=== PATIENT | female | born 1935 | race Caucasian/White ===

== ENCOUNTER → 2016-11-12 | Outpatient (CLI) | payer MEDICARE, OTHER ==
[~2016-11-12] MED LIST: CALCIUM600 M2 PO; FISH OIL1000 MG PO; GLUCOSAMINE & C1 CA1 PO; LIPITOR20 MG PO; MULTI VITAMINS1 TAB PO; SYNTHROID0.1 MG/TAB PO; TYLENOL PM EXTR1 TA1 PO; VITAMIN C500 MG PO; VITAMIN D3400 IU PO; VITAMIN E100 I3 PO
== END ==
LOC: MC.RAD 09:56
DX: Z12.31 Encounter for screening mammogram for malignant neoplasm of breast (principal); D24.2 Benign neoplasm of left breast; D24.1 Benign neoplasm of right breast; Z85.3 Personal history of malignant neoplasm of breast

== ENCOUNTER → 2017-11-15 | Outpatient (CLI) | payer MEDICARE, OTHER | LOC: MC.RAD 09:34 | DX: Z12.31 Encounter for screening mammogram for malignant neoplasm of breast (principal) ==

== ENCOUNTER → 2018-11-17 | Outpatient (CLI) | payer MEDICARE, OTHER | LOC: MC.RAD 08:52 | DX: Z12.31 Encounter for screening mammogram for malignant neoplasm of breast (principal); C50.912 Malignant neoplasm of unspecified site of left female breast ==

== ENCOUNTER 2019-10-30 08:18 | Day surgery (SDC) | payer MEDICARE, OTHER ==
[~2019-10-30] VITALS: Ht 162.6 cm; Wt 69.1 kg
[2019-10-30] MEDS ORDERED: KRILL OIL 1,001 EAC1 PO (08:43)
[2019-10-30] MEDS ORDERED: CALCIUM CARBON650 M2 PO (08:43)
[2019-10-30] MEDS ORDERED: MASON NATURAL500 MG PO (08:44)
[2019-10-30] MEDS ORDERED: MULTI VITAMINS1 TAB PO (08:44)
[2019-10-30] MEDS ORDERED: VITAMIN C500 MG PO (08:44)
[2019-10-30] MEDS ORDERED: VITAMIN D250 MCG PO (08:44)
[2019-10-30] MEDS ORDERED: THE MEDICINE S200 M2 PO (08:45)
[2019-10-30] MEDS ORDERED: TURMERIC500 MG PO (08:45)
[2019-10-30] MEDS ORDERED: LIPITOR20 MG PO (08:45)
[2019-10-30] MEDS ORDERED: THYROXIN PO (08:46)
[2019-10-30] MEDS ORDERED: ALEVE 220MG220 MG PO (08:47)
[2019-10-30] MEDS ORDERED: GLUCOSAMIN 500 PO (08:47)
[2019-10-30 08:50] VITALS: BP 148/64; PULSE 74; TEMP 97.6
[2019-10-30 10:45] VITALS: BP 113/42; PULSE 74
--- NOTE | 2019-10-30 12:18 | NUR ---
PT TOLERATED FOOD AND FLUIDS, DENIES PAIN OR NAUSEA AND OR VOMITING. DAUGHTER PRESENT WITH HER. DISCHARGE INSTRUCTIONS GIVEN, PT VOICES UNDERSTANDING AND SIGNED DC INSTRUCTIONS. PT DC'D TO FAMILY VEHICLE, DAUGHTER DRIVING
== END 2019-10-30 11:25 | disposition home or self-care (01) ==
LOC: SDCO 08:18
DX: Z12.11 Encounter for screening for malignant neoplasm of colon (principal); K57.30 Diverticulosis of large intestine without perforation or abscess without bleeding; Z88.2 Allergy status to sulfonamides
CPT/HCPCS: J2250; J2405; J3010; J7030

== ENCOUNTER → 2019-11-21 | Outpatient (CLI) | payer MEDICARE, OTHER ==
[~2019-11-21] MED LIST changes: +ALEVE 220MG220 MG PO; +CALCIUM CARBON650 M2 PO; +GLUCOSAMIN 500 PO; +KRILL OIL 1,001 EAC1 PO; +MASON NATURAL500 MG PO; +THE MEDICINE S200 M2 PO; +THYROXIN PO; +TURMERIC500 MG PO; +VITAMIN D250 MCG PO
== END ==
LOC: MC.RAD 14:20
DX: Z12.31 Encounter for screening mammogram for malignant neoplasm of breast (principal); C50.912 Malignant neoplasm of unspecified site of left female breast

== ENCOUNTER 2020-11-25 20:50 | Inpatient (IN) | payer MEDICARE, OTHER ==
[~2020-11-25] VITALS: Ht 162.6 cm; Wt 72.7 kg
[2020-11-25 21:35] LABS: COLLECTION METHOD CLEAN CATCH
[2020-11-25 21:41] LABS: BASO % 0.2 % (0.0-2.0); EOS # 0.1 (0.0-0.7); EOS % 0.6 % (0-4.0); GRAN # 10.7 (1.4-6.5); HEMOGLOBIN 11.2 g/dl (12.5-16.0); LYMPH # 0.8 (1.2-3.4); MEAN CELL VOLUME 95 fl (80.0-100.0); MEAN CORPUSCULAR HEMOGLOBIN 31 pg (27.0-31.0); MEAN CORPUSCULAR HGB CONC 33 g/dl (33.0-37.0); MEAN PLATELET VOLUME 9.2 fl (7.4-10.4); MONO # 1.4 (0.1-0.6); MONO % 10.8 % (1.7-9.3); PLATELET COUNT 206 K/mm3 (130-400); RED BLOOD COUNT 3.57 M/mm3 (4.10-5.30); REDCELL DISTRIBUTION WIDTH-CV 13.3 % (11.5-14.5)
[2020-11-25 21:46] LABS: HEMATOCRIT 33.9 % (37.0-47.0)
[2020-11-25 21:48] LABS: AMORPHOUS CRYSTAL Present /uL; PH 5 (5-8); SQUAMOUS EPITHELIAL None Seen /hpf; URINE APPEARANCE Cloudy; URINE BACTERIA Moderate /hpf; URINE BILIRUBIN Negative (NEGATIVE); URINE BLOOD Negative (NEGATIVE); URINE COLOR Yellow; URINE GLUCOSE Negative (NEGATIVE); URINE KETONE Trace (NEGATIVE); URINE LEUKOCYTE ESTERASE 3+ (NEGATIVE); URINE NITRATE Positive (NEGATIVE); URINE PROTEIN(semi-quant) Negative (NEGATIVE); URINE UROBILINOGEN Negative (NEGATIVE)
[2020-11-25 21:57] LABS: ALBUMIN 3.3 gm/dL (3.5-5.0); BILIRUBIN,TOTAL 0.7 mg/dL (0.0-1.0); CALCIUM 9.1 mg/dL (8.4-10.2); CREATININE, serum 0.93 (0.52-1.25); POTASSIUM 4.8 mmol/L (3.4-5.0); TOTAL PROTEIN 5.8 gm/dL (6.4-8.2)
[2020-11-25] MEDS ORDERED: ASPIRIN 32325 MG/TAB PO (22:43)
[2020-11-25 22:45] LABS: ARTERIAL BLD GAS O2 SATURATION 98.7 % (92-100); ARTERIAL BLOOD GAS BASE EXCESS 0.4 (-2-2); ARTERIAL BLOOD GAS HCO3 24.8 meq/L (22-26); ARTERIAL BLOOD GAS PCO2 39.2 mmHg (35-45); ARTERIAL BLOOD GAS pH 7.42 (7.35-7.45)
[2020-11-25] MEDS ORDERED: COZAAR100 MG PO (22:45)
[2020-11-25 22:47] LABS: ARTERIAL BLOOD GAS PO2 157.7 mmHg (80-100)
[2020-11-25] MEDS ORDERED: SYNTHROID0.1 MG/TAB PO (22:47)
[2020-11-25] MEDS ORDERED: ZOFRAN 4MG T4 MG/TAB PO (22:48)
[2020-11-25] MEDS ORDERED: MOBIC 7.5MG7.5 MG PO (22:48)
[2020-11-26 01:12] VITALS: BP 116/42; PULSE 83; TEMP 98.5
--- NOTE | 2020-11-26 01:41 | NUR ---
arrived to unit, oriented to room, call montalvo, hospital policies, updated on plan of care, made comfortable, skin assessment completed, dressing to L hip intact with bruising (purple) around site, denies nausea, O2@2L per NC in use, IV to L hand, fall precautions in place, call montalvo w/i reach.
[2020-11-26 04:20] VITALS: BP 141/52; PULSE 103; TEMP 99.8
[2020-11-26 07:19] LABS: HEMOGLOBIN 10.2 g/dl (12.5-16.0); MEAN CELL VOLUME 95 fl (80.0-100.0); MEAN CORPUSCULAR HEMOGLOBIN 31 pg (27.0-31.0); MEAN CORPUSCULAR HGB CONC 33 g/dl (33.0-37.0); MEAN PLATELET VOLUME 9.4 fl (7.4-10.4); PLATELET COUNT 191 K/mm3 (130-400); RED BLOOD COUNT 3.26 M/mm3 (4.10-5.30); REDCELL DISTRIBUTION WIDTH-CV 13.6 % (11.5-14.5)
[2020-11-26 07:25] LABS: HEMATOCRIT 30.9 % (37.0-47.0)
[2020-11-26 07:39] LABS: BILIRUBIN,TOTAL 0.5 mg/dL (0.0-1.0); CALCIUM 8.6 mg/dL (8.4-10.2); CREATININE, serum 0.85 (0.52-1.25); POTASSIUM 4.5 mmol/L (3.4-5.0); TOTAL PROTEIN 5.4 gm/dL (6.4-8.2)
[2020-11-26 07:51] VITALS: BP 120/48; PULSE 98; TEMP 99.7
[2020-11-26 09:17] LABS: BAND 19 % (0-10); LYMPHOCYTE 5 % (20.0-51.0); NEUTROPHILS 65 % (42.0-75.2)
[2020-11-26 09:18] LABS: PLATELET ESTIMATE NORMAL (NORMAL)
[2020-11-26 11:41] VITALS: BP 112/37; PULSE 93; TEMP 99.4
--- NOTE | 2020-11-26 11:48 | NUR ---
First visit from the planning associate. No needs right now.
--- NOTE | 2020-11-26 15:31 | NUR ---
Mechanism Inspector met with patient to discuss discharge planning and her daughter, Ivory (ph#[phone]) is at bedside. Patient lives alone in [place], however reports Ivory and her son, Bob both live nearby. Ivory has been staying with patient following her hip surgery on 11/19/20. Patient sees Dr. Melton for primary care and has most of her medications mailed to her through [facility]. Patient also utilizes [facility] as needed. Patient has a walker and cane at home. Patient states she was doing fairly well at home with ADLS following her surgery. Patient states she has been getting up to the bathroom independently, although Ivory follows her to supervise for safety. Patient was set up to start outpatient PT at the [facility]. Patient states she has DPOA-HC completed but SW did not locate copy in EMR. Patient states she plans to return home with outpatient PT as long as she is able. PT worked with patient and recommend home with continued outpatient PT. Patient states Ivory will continue to stay with her for the time being. Following intake, JACKY contacted CLAUDIA Moya-CM at [facility] who advised they do not have a copy of patient's DPOA-HC. SW will continue to follow.
[2020-11-26 16:51] VITALS: BP 138/56; PULSE 90; TEMP 98.1
--- NOTE | 2020-11-26 18:30 | NUR ---
Patient has been doing well today. Minimal complaints of pain today, no complaints of nausea. She got several medications to help her have a bowel movement today but so far has not been successful. She is passing flatus without issues this afternoon. Her daughter was at bedside most the afternoon. She was able to get up and walk in the halls with help. Dressing to left hip is C/D/I. There was an order to see if ok to discontinue dressing but could not get a hold of Dr Paredes this afternoon. No other changes at this time. Call light within reach.
[2020-11-26 20:41] VITALS: BP 132/54; PULSE 93; TEMP 98
--- NOTE | 2020-11-26 22:19 | NUR ---
2030- PT UP TO COMMODE FOR BM , HAVING ABDOMINAL CRAMPING. XXLARGE BM DARK AND HARD. ABD FIRM AND ROUNDED. PT FEELS SOME RELIEF AFTER BM. ASSESSMENT AND VITALS COMPLETE. TYLENOL GIVEN FOR HIP PAIN, DSG C/D/I. ENC TO STAY AWAY FROM NARC THIS WOULD ONLY CAUSE MORE CONSTIPATION. PT V/U. POC DISCUSSED. NEEDS MET.
[2020-11-27 00:23] VITALS: BP 120/55; PULSE 81; TEMP 98.1
--- NOTE | 2020-11-27 02:26 | NUR ---
PT HAS BEEN UP AND DOWN ALL NIGHT WITH BOWEL MOVEMENTS. FIRST FEW WERE HARD AND FORMED AT THIS POINT IT IS VERY LOOSE LIQUID AND WILL OFTEN NOT MAKE IT TO COMMODE. WEARING A BREIF FOR SECURITY.
[2020-11-27 03:58] VITALS: BP 126/46; PULSE 86; TEMP 98.1
--- NOTE | 2020-11-27 05:53 | NUR ---
PT SLEPT OFF AND ON THROUGH OUT NIGHT. DID HAVE SEVERAL EPISODE OF INCONTINENCE OF BOWEL AND ALSO HAD SOME CONTROLLED BM'S. HAS HAD APPROX 10 MOVEMENTS TONIGHT.
[2020-11-27 07:08] LABS: BASO % 0.2 % (0.0-2.0); EOS # 0.1 (0.0-0.7); EOS % 0.7 % (0-4.0); GRAN % 81.3 % (42.2-75.2); LYMPH # 1.3 (1.2-3.4); LYMPH % 8.8 % (20.0-51.0); MEAN CELL VOLUME 96 fl (80.0-100.0); MEAN CORPUSCULAR HGB CONC 33 g/dl (33.0-37.0); MEAN PLATELET VOLUME 9.7 fl (7.4-10.4); MONO # 1.2 (0.1-0.6); MONO % 8.1 % (1.7-9.3); PLATELET COUNT 199 K/mm3 (130-400); RED BLOOD COUNT 3.04 M/mm3 (4.10-5.30); REDCELL DISTRIBUTION WIDTH-CV 13.7 % (11.5-14.5)
[2020-11-27 07:16] LABS: HEMATOCRIT 29.2 % (37.0-47.0); HEMOGLOBIN 9.7 g/dl (12.5-16.0); MEAN CORPUSCULAR HEMOGLOBIN 32 pg (27.0-31.0)
[2020-11-27 07:24] LABS: CALCIUM 8.3 mg/dL (8.4-10.2); CREATININE, serum 0.68 (0.52-1.25); POTASSIUM 4.1 mmol/L (3.4-5.0)
[2020-11-27 08:00] VITALS: BP 127/38; PULSE 85; TEMP 98.4
--- NOTE | 2020-11-27 08:00 | NUR ---
Patient is doing well this morning. She is having diarrhea this morning. Spoke with her about walking to the bathroom instead of using the commode. Spoke with Dr Reggie Galeano's PA about removing dressing. He said it was time to remove and to leave open to air. Dressing removed, steri-stips in place. No drainage or reddness to incision. Bruising to lower part of the incision. Some swelling to left hip. No other changes at this time. Call light within reach. Patient is sitting up in the chair at this time.
[2020-11-27 12:38] VITALS: BP 118/83; PULSE 87; TEMP 98
[2020-11-27 15:41] VITALS: BP 145/54; PULSE 96; TEMP 97.9
--- NOTE | 2020-11-27 18:00 | NUR ---
Patient continues to do well this afternoon. No complaints of pain or nausea. She continues to have diarrhea. She is hoping to discharge tomorrow. Her daughter was here visiting this afternoon. She needs a lot of encouragement to get up and move around. No other changes at this time. Call light within reach.
[2020-11-27 19:34] VITALS: BP 124/46; PULSE 85; TEMP 98
--- NOTE | 2020-11-27 20:40 | NUR ---
DC'd SL to right AC. Pt takes HS meds. Denies need for pain meds. Has steri-strips to left hip, noted swelling and bruising to left hip. Pt is alert and oriented x4. SL to left hand flushes well. Reports loose stools after being constipated.
[2020-11-28 00:40] VITALS: BP 133/48; PULSE 76; TEMP 98.5
--- NOTE | 2020-11-28 03:42 | NUR ---
Pt up to bathroom with one assist. Gait steady. Has no BM this time. Back to bed without complaint.
[2020-11-28 04:36] VITALS: BP 141/54; PULSE 70; TEMP 97.8
[2020-11-28 06:27] LABS: MEAN CELL VOLUME 95 fl (80.0-100.0); MEAN CORPUSCULAR HGB CONC 33 g/dl (33.0-37.0); MEAN PLATELET VOLUME 9.1 fl (7.4-10.4); PLATELET COUNT 227 K/mm3 (130-400); RED BLOOD COUNT 3.17 M/mm3 (4.10-5.30); REDCELL DISTRIBUTION WIDTH-CV 13.4 % (11.5-14.5)
[2020-11-28 06:41] LABS: CALCIUM 8.5 mg/dL (8.4-10.2); CREATININE, serum 0.81 (0.52-1.25)
[2020-11-28 06:43] LABS: HEMOGLOBIN 9.8 g/dl (12.5-16.0); MEAN CORPUSCULAR HEMOGLOBIN 31 pg (27.0-31.0)
[2020-11-28 07:09] LABS: BAND 9 % (0-10); EOSINOPHIL 5 % (0-4); LYMPHOCYTE 16 % (20.0-51.0); METAMYELOCYTE 3 % (0-0); NEUTROPHILS 61 % (42.0-75.2); OVALOCYTES 1+; PLATELET ESTIMATE NORMAL (NORMAL)
[2020-11-28 07:13] VITALS: BP 148/62; PULSE 72; TEMP 97.7
[2020-11-28 08:43] VITALS: BP 148/52; PULSE 71; TEMP 97.8
[2020-11-28] MEDS ORDERED: TYLENOL 325MG325 MG PO (10:04)
[2020-11-28] MEDS ORDERED: MIRALAX PA17 GM/Dose PO (10:04)
[2020-11-28] MEDS ORDERED: OMNICEF 300MG300 MG PO (10:06)
[2020-11-28 11:05] VITALS: BP 137/50; PULSE 70; TEMP 97.5
--- NOTE | 2020-11-28 13:00 | NUR ---
Patient is discharging home. Discharge instructions discussed with patient and her daughter. INT's discontinued. Patient did not verbalize any questions. Discussed how to avoid constipation at home. She has follow up appointment with ortho next week. She has a PT appointment tomorrow. Incsion is well approximated. Copies of discharge instructions sent with patient. All belongings packed up by daughter. Patient walked out via wheel chair.
--- NOTE | 2020-11-28 13:31 | NUR ---
[employer] attended clinical rounds and patient to discharge home today with continued outpatient physical therapy at [facility] in [place]. SW contacted [facility] and faxed updated discharge orders to fax#[phone].
== END 2020-11-28 13:15 | disposition home or self-care (01) | DRG 872 ==
LOC: COL.ER 20:50 → SURG 22:12 → COL.ER 22:12 → SURG 11-28 13:15
PROVIDERS: Hospitalist; Nurse Practitioner Primary Care; Physician Assistant; Student in an Organized Health Care Education/Training Program; ADMIT Internal Medicine
DX: A41.51 Sepsis due to Escherichia coli [E. coli] (principal); N39.0 Urinary tract infection, site not specified; I10 Essential (primary) hypertension; E78.5 Hyperlipidemia, unspecified; E03.9 Hypothyroidism, unspecified; K59.00 Constipation, unspecified; D64.9 Anemia, unspecified; Z66 Do not resuscitate; K80.20 Calculus of gallbladder without cholecystitis without obstruction; Z20.822 Contact with and (suspected) exposure to COVID-19; Z85.3 Personal history of malignant neoplasm of breast; Z79.82 Long term (current) use of aspirin; Z88.2 Allergy status to sulfonamides; Z96.642 Presence of left artificial hip joint
CPT/HCPCS: 99223-AI; 99232-AI; 99239; J0696; J1644; J7030; Q9967

== ENCOUNTER → 2021-03-19 | Outpatient (CLI) | payer MEDICARE, OTHER ==
[~2021-03-19] MED LIST changes: +ASPIRIN 32325 MG/TAB PO; +COZAAR100 MG PO; +MIRALAX PA17 GM/Dose PO; +MOBIC 7.5MG7.5 MG PO; +OMNICEF 300MG300 MG PO; +TYLENOL 325MG325 MG PO; +ZOFRAN 4MG T4 MG/TAB PO
== END ==
LOC: MC.RAD 09:42
DX: Z12.31 Encounter for screening mammogram for malignant neoplasm of breast (principal); Z90.12 Acquired absence of left breast and nipple; Z98.82 Breast implant status; Z98.890 Other specified postprocedural states